=== PATIENT | female | born 2000 | race Caucasian/White ===

== ENCOUNTER 2021-09-17 22:01 | Emergency (ER) | payer BC ==
[~2021-09-17] VITALS: Ht 170.2 cm; Wt 97.5 kg
[2021-09-17] MEDS ORDERED: [UNRECOGNIZED DRUG - OTHER] (22:27)
[2021-09-17] MEDS ORDERED: ACETAMINOPHEN PO (22:28)
[2021-09-17 22:36] LABS: URINE BILIRUBIN NEGATIVE (Negative); URINE BLOOD NEGATIVE (Negative); URINE CLARITY SL CLOUDY; URINE COLOR YELLOW; URINE GLUCOSE-RANDOM* NEGATIVE (Negative); URINE KETONES NEGATIVE (Negative); URINE LEUKOCYTES-REFLEX TRACE (Negative); URINE NITRITE-REFLEX NEGATIVE (Negative); URINE PROTEIN (DIPSTICK) NEGATIVE (Negative); URINE SPECIFIC GRAVITY 1.025 (1.005-1.035); URINE UROBILINOGEN 0.2 E.U./dl (0.2-1.0)
[2021-09-18] LABS: ABSOLUTE NEUTROPHILS 6.2 thou/uL (1.4-8.2); BASOPHILS 0.3 % (0.0-2.0); EOSINOPHILS 4.8 % (0.0-3.0); HEMATOCRIT 39.1 % (37.0-47.0); LYMPHOCYTES 23.8 % (24.0-44.0); MCH 30.1 pg (26.0-34.0); MCHC 33.2 g/dL (28.0-37.0); MCV 90.6 fL (80.0-100.0); MONOCYTES 8.1 % (1.0-8.0); PLATELET COUNT 337 thou/uL (150-400); RBC 4.31 mil/uL (4.20-5.00); RDW 14.3 % (10.5-14.5); WBC 9.8 thou/uL (4.0-11.0)
[2021-09-18 00:12] LABS: ALBUMIN 3.6 g/dL (3.4-5.0); DIRECT BILIRUBIN < 0.1 mg/dL (<0.1-0.2); LIPASE 98 U/L (73-393); SGOT 43 U/L (15-37); SGPT 19 U/L (30-65); TOTAL BILIRUBIN 0.5 mg/dL (0.2-1.0); TOTAL PROTEIN 6.6 g/dL (6.4-8.2)
[2021-09-18 00:18] LABS: CALCIUM 8.3 mg/dL (8.5-10.1); POTASSIUM 4.1 mmol/L (3.5-5.1)
[2021-09-18] MEDS ORDERED: ZOFRAN ODT4 MG PO (01:24)
[2021-09-18 01:34] VITALS: BP 132/71
== END 2021-09-18 01:40 | disposition home or self-care (01) ==
LOC: ER 22:01
PROVIDERS: Emergency Medicine; Nurse Practitioner
DX: R10.11 Right upper quadrant pain (principal); F41.9 Anxiety disorder, unspecified; F32.9 Major depressive disorder, single episode, unspecified; F12.90 Cannabis use, unspecified, uncomplicated; Z79.899 Other long term (current) drug therapy; Z88.0 Allergy status to penicillin